=== PATIENT | male | born 1975 | race Hispanic/Latino ===

== ENCOUNTER 2018-12-27 12:20 | Emergency (ER) | payer SELFPAY ==
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
[2018-12-27] MEDS ORDERED: Acetaminophen 500 MG TAB ONE (13:53)
[2018-12-27] MEDS ORDERED: Ketorolac Tromethamine 30 MG/ML VIAL ONE (13:53)
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
[2018-12-27] MEDS ORDERED: ISOVUE-370 76%-LOCM 1 ML ONE (15:24)
== END 2018-12-27 15:36 | disposition home or self-care (01) ==
LOC: ERS 12:20
DX: S16.1XXA Strain of muscle, fascia and tendon at neck level, initial encounter (principal); R07.89 Other chest pain; M54.5 Low back pain; E11.9 Type 2 diabetes mellitus without complications; Z79.84 Long term (current) use of oral hypoglycemic drugs; V89.2XXA Person injured in unspecified motor-vehicle accident, traffic, initial encounter
CPT/HCPCS: 71046; 71260; 72072; 72100; 96372; J1885; Q9966